=== PATIENT | male | born 1955 | race Caucasian/White ===

== ENCOUNTER 2016-10-27 07:30 | Emergency (ER) | payer OTHER ==
[~2016-10-27] VITALS: Ht 163.8 cm; Wt 90.7 kg
[2016-10-27] MEDS ORDERED: AMLODIPINE BESY10 M1 PO (07:56)
[2016-10-27] MEDS ORDERED: SULFAMETHOXAZO1 EAC1 PO (07:57)
[2016-10-27] MEDS ORDERED: CEFDINIR300 M1 PO (07:57)
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
[2016-10-27 08:33] LABS: ABSOLUTE BASOPHIL COUNT 0 /CUMM (0.0-0.2); ABSOLUTE EOSINOPHIL COUNT 0.3 /CUMM (0.0-0.7); ABSOLUTE GRANULOCYTE CT 5.2 /CUMM (1.4-6.5); ABSOLUTE LYMPH COUNT 1.4 /CUMM (1.2-3.4); ABSOLUTE MONOCYTE COUNT 0.5 /CUMM (0.10-0.60); BASOPHIL % 0.3 % (0.0-2.0); EOSINOPHIL % 4.5 % (0-5); GRANULOCYTE % 69.7 % (42.2-75.2); HEMATOCRIT 49.7 % (42-52); MEAN CORPUSCULAR HGB 29.6 PG (27.0-31.0); MEAN CORPUSCULAR HGB CONC 34.9 G/DL (33.0-37.0); PLATELET COUNT 181 /CUMM (130-400); RBC DISTRIBUTION WIDTH 12.8 % (11.5-14.5); RED BLOOD CELL CT 5.85 /CUMM (4.70-6.10); WHITE BLOOD CELL COUNT 7.4 /CUMM (4.8-10.8)
[2016-10-27] MEDS ORDERED: BACTRIM DS TAB1 EACH PO (08:37)
[2016-10-27] MEDS ORDERED: KEFLEX500 M1 PO (08:37)
[2016-10-27 09:20] VITALS: BP 140/96
== END 2016-10-27 09:21 ==
LOC: ERH 07:30
PROVIDERS: Physician Assistant
DX: L03.115 Cellulitis of right lower limb (principal)
CPT/HCPCS: 87040; 96374